=== PATIENT | female | born 1950 | race Caucasian/White ===

== ENCOUNTER → 2018-09-13 12:09 | Outpatient (CLI) | payer MEDICARE, OTHER, SELFPAY ==
--- NOTE | 2018-09-13 | DI.RAD.S_ITS ---
This blank DEXA report has been sent in error by the PACS system. The correct and complete report will be forthcoming in 1-2 days. Thank you for your patience and understanding. Dictated by: Eddie Eden M.D. on 09/13/2018 at 15:00 Approved by: Eddie Eden M.D. on 09/13/2018 at 15:02
--- NOTE | 2018-09-13 | DI.MG.S_ITS ---
BILATERAL DIGITAL SCREENING MAMMOGRAM 3D/2D WITH CAD: 09/13/2018 CLINICAL: Routine screening. Comparison is made to exams dated: 07/14/2017 mammogram, 07/04/2016 mammogram, and 07/02/2015 mammogram - [facility]. The tissue of both breasts is extremely dense, which lowers the sensitivity of mammography. Current study was also evaluated with a Computer Aided Detection (CAD) system. There is a benign biopsy clip in the right breast. No significant masses, calcifications, or other findings are seen in either breast. There has been no significant interval change. IMPRESSION: NEGATIVE There is no mammographic evidence of malignancy. A 1 year screening mammogram is recommended. This exam was interpreted at Station ID: [id number]. NOTE: For mammograms, a report in lay terms will be sent to the patient. Approximately 15% of breast malignancies will not be visualized mammographically. In the management of a palpable breast mass, a negative mammogram must not discourage biopsy of a clinically suspicious lesion. Electronically Signed By: Hever rubalcava/dylan:09/13/2018 17:20:55 letter sent: Normal Exam ACR BI-RADS Category 1: Negative [id number]
== END ==
PROVIDERS: PCP Nurse Practitioner Family; Visit Provider Nurse Practitioner Family
DX: Z12.31 Encounter for screening mammogram for malignant neoplasm of breast (principal); M85.852 Other specified disorders of bone density and structure, left thigh; Z78.0 Asymptomatic menopausal state; Z82.62 Family history of osteoporosis; Z90.722 Acquired absence of ovaries, bilateral
CPT/HCPCS: 77063; 77067; 77080

== ENCOUNTER → 2019-10-09 15:27 | Outpatient (CLI) | payer MEDICARE, OTHER, SELFPAY ==
--- NOTE | 2019-10-09 | DI.MG.S_ITS ---
BILATERAL DIGITAL SCREENING MAMMOGRAM 3D/2D WITH CAD: 10/09/2019 CLINICAL: Routine screening. Comparison is made to exams dated: 09/13/2018 mammogram, 07/14/2017 mammogram, and 07/04/2016 mammogram - [facility]. The tissue of both breasts is heterogeneously dense. This may lower the sensitivity of mammography. Current study was also evaluated with a Computer Aided Detection (CAD) system. There is a biopsy clip in the right breast. No significant masses, calcifications, or other findings are seen in either breast. There has been no significant interval change. IMPRESSION: NEGATIVE There is no mammographic evidence of malignancy. A 1 year screening mammogram is recommended. This exam was interpreted at Station ID: [id number]. NOTE: For mammograms, a report in lay terms will be sent to the patient. Approximately 15% of breast malignancies will not be visualized mammographically. In the management of a palpable breast mass, a negative mammogram must not discourage biopsy of a clinically suspicious lesion. Electronically Signed By: Kelsea contreras/dylan:10/09/2019 17:05:00 letter sent: Normal Exam ACR BI-RADS Category 1: Negative [id number]
== END ==
PROVIDERS: PCP Nurse Practitioner Family; Visit Provider Nurse Practitioner Family
DX: Z12.31 Encounter for screening mammogram for malignant neoplasm of breast (principal)
CPT/HCPCS: 77063; 77067

== ENCOUNTER 2019-10-28 15:29 | Emergency (ER) | payer MEDICARE, OTHER, SELFPAY ==
[2019-10-28 15:34] VITALS: BP 117/70; PULSE 110; RESP 20; TEMP 37.2; O2SAT 100
--- NOTE | 2019-10-28 15:40 | DI.RAD.S_ITS ---
PROCEDURE: XR SACRUM COCCYX MIN 2V INDICATIONS: dizziness/vomiting/syncope after fall TECHNIQUE: 3 views of the sacrum and coccyx acquired. COMPARISON: None. FINDINGS: Bones: No fractures or dislocations. No suspicious bony lesions. Lower lumbar spondylosis. Mild bilateral hip degeneration. Soft tissues: Visualized bowel gas pattern is normal. No suspicious soft tissue densities. IMPRESSION: Mild bilateral hip degeneration No fracture identified Dictated by: Diogenes Mcfarland M.D. on 10/28/2019 at 16:04 Approved by: Diogenes Mcfarland M.D. on 10/28/2019 at 16:06
--- NOTE | 2019-10-28 15:40 | DI.CT.S_ITS ---
PROCEDURE: CT HEAD/BRAIN WO CON INDICATIONS: dizziness/vomiting/syncope after fall TECHNIQUE: Noncontrast 4.5 mm thick angled axial sections acquired from the foramen magnum to the vertex, with coronal and sagittal reformats. For radiation dose reduction, the following was used: automated exposure control, adjustment of mA and/or kV according to patient size. COMPARISON: None. FINDINGS: Image quality: Excellent. CSF spaces: Basal cisterns are patent. No extra-axial fluid collections. The ventricles are symmetric in size and shape. Brain: No intracranial bleeds or masses. There is cerebral volume loss for age, with resultant ventricular and sulcal prominence. There are periventricular and deep white matter chronic small vessel ischemic changes. There is intracranial internal carotid artery atherosclerosis. Skull and face: Calvarium and visualized facial bones appear intact, without suspicious lesions. Sinuses: Visualized sinuses and mastoids are clear. IMPRESSION: No acute intracranial hemorrhage is seen. No acute intracranial process is seen. Note is made of mild age-appropriate brain parenchymal volume loss and chronic small vessel ischemic changes. Dictated by: Jonathan Castillo M.D. on 10/28/2019 at 14:58 Approved by: Jonathan Castillo M.D. on 10/28/2019 at 15:05
[2019-10-28 16:20] VITALS: BP 120/64; PULSE 82; RESP 16; O2SAT 99
[2019-10-28] MEDS: ONDANSETRON 4 MG/2 ML INJ IV (16:24)
[2019-10-28] MEDS: SODIUM CHLORIDE 0.9% 1,000 ML 1000 ML IV (16:24)
[2019-10-28 16:31] LABS: Blood Urea Nitrogen 18 mg/dL (7-17); Calcium 9.1 mg/dL (8.4-10.2); Carbon Dioxide 22 mmol/L (22-32); Chloride 104 mmol/L (98-107); Estimated Glomerular Filt Rate > 60.0 mL/min (>60); Glucose 117 mg/dL (80-110); HEMOLYSIS < 15 (0-50); Potassium 3.3 mmol/L (3.4-5.1); Sodium 139 mmol/L (137-145)
--- NOTE | 2019-10-28 16:56 | ED_ITS ---
HPI - Syncope <YOVANY Wakefield - Last Filed: 10/28/19 23:59> General Chief Complaint: Syncope Stated Complaint: Fell, Hurt Tailbone and Head Time Seen by Provider: 10/28/19 15:39 Source: patient and family Mode of arrival: Ambulatory Limitations: no limitations History of Present Illness HPI narrative: This is a 69-year-old female, nonsmoker, who presents to ED after she was referred by her PCP Dr. Watts for syncopal episode, fall and closed head injury. Patient reports yesterday she accidentally fell in the bathroom on a slick floor and landed on her tailbone then hit posterior head on a sink cabinet. Patient denies loss of consciousness, vision change, limb weakness, vomiting immediately after the fall. Patient denies taking anticoagulants or antiplatelets. In the middle of the night after the fall, patient got up and went to the bathroom and had a syncopal episode and found by her . Patient reports the pain was very severe in her sacrum region with movement and getting out of bed prior to this. Then on the way to the bedroom, patient had another episode of brief syncopal episode lasting for 2-3 minutes. Since then patient had about 4 times of emesis. Patient denies headache but head feels fuzzy. Patient denies seizure activities, tingling/numbness/weakness to extremities. Reports feeling lightheaded and feeling queasy in her stomach. Patient was unable to eat or drank most of the day today and had few sips of liquids. Patient denies urinary or stool incontinence or saddle anesthesia. Patient reports otherwise healthy. Related Data Home Medications Medication Instructions Recorded Confirmed BETAMETH/CLOTRIMAZOLE 1 cre TOPICAL #45 gm 09/19/12 (Clotrimazole-Betamethasone Crm) clobetasol 0.05 % TOPICAL PRN #0 03/18/13 naproxen sodium [Aleve] 220 mg PO PRN #0 03/18/13 tetrahydrozoline [Visine] 1 drp OU PRN #15 ml 03/18/13 estradiol 0.5 mg PO DAILY 10/28/19 10/28/19 Previous Rx's Medication Instructions Recorded estradiol [Vagifem] 10 mcg VG Q DAY #60 04/30/13 lidocaine 1 patch TOP DAILY #15 each 10/28/19 ondansetron 4 mg PO BID-TID PRN #7 tab 10/28/19 Allergies Allergy/AdvReac Type Severity Reaction Status Date / Time Sulfa (Sulfonamide Allergy Severe MOTHER AND Verified 10/28/19 16:24 Antibiotics) BROTHER [SULFA (SULFONAMIDE ARE ANTIBIOTICS)] ALLERGIC codeine [CODEINE] AdvReac Severe HALLUCINATI Verified 10/28/19 16:24 ONS Review of Systems <YOVANY Wakefield - Last Filed: 10/28/19 23:59> Review of Systems Narrative: General: Denies fever, chills, fatigue, malaise, sweats. HEENT: Denies sinus pain, ear pain, sore throat, difficulty swallowing, (+) dizziness. Respiratory: Denies dyspnea, cough, wheezing, hemoptysis, sputum. Cardiovascular: Denies chest pain, palpitations, orthopnea, edema. Gastrointestinal: Denies (+) nausea, (+) 4 episodes of vomiting, abdominal pain, diarrhea, constipation, melena. : Denies dysuria, frequency, incontinence, hematuria, urinary retention. Musculoskeletal: Reports severe discomfort in sacrum/coccyx region. Denies weakness, joint pain or other bony pain. Skin: Denies rash, skin lesions, or other. Neurologic: Denies weakness, headache, numbness, change in speech, confusion, seizures, incoordination. Had 2 syncopal episodes. Psychiatric: No concerning psychosocial issues. 12-point review of systems is negative except for those stated above. Patient History <YOVANY Wakefield - Last Filed: 10/28/19 23:59> Surgical History H/O: hysterectomy (Acute) History of (Acute) Social History Smoking Status: Never smoker Smoking Status: Never smoker Exam <YOVANY Wakefield - Last Filed: 10/28/19 23:59> Narrative Exam Narrative: GEN: Alert, oriented x 3, well appearing and nourished, and in no acute distress. Head: Normal cephalic, atraumatic. No scalp or temporal tenderness, palpable mass or rash. EYES: Pupils are equal, round, and reactive to light and accommodation. Extraocular muscles are intact bilaterally. There is no subconjunctival hemorrhage, exudate and sclera non-icteric. ENT: Bilateral auditory canals and tympanic membranes clear. Hearing grossly intact. Nose without bleeding, purulent discharge, septal hematoma or deviation. Turbinate without erythema or swelling. Facial sinuses nontender to palpate. Mucous membrane moist, no mucosal lesion. Throat without erythema, tonsillar hypertrophy or exudate. Uvula in midline, airway patent. Neck: Trachea in midline. No JVD, mild tenderness in mid cervical region. Mild dicomfort with flexion and extension of the C spine. No lymphadenopathy. No masses or thyroid megaly. Supple, no meningeal signs. CARDIAC: Normal regular rate and rhythm without murmurs, gallops, or rubs. No chest wall tenderness. No peripheral edema, cyanosis or pallor. Capillary refill is less than 2 seconds. No carotid bruits. RESPIRATORY: Lungs are cleat to auscultate bilaterally. No cough, wheezes, rales, or rhonchi. No stridor, respiratory distress, increase work of breathing, or accessary muscle used. ABD: Abdomen soft, nontender and non-distended. No guarding or rebound tenderness to palpate. Bowel sounds are normal in all 4 quadrants. There is no palpable masses or organomegaly. EXT: Full painless ROM of all extremities with no loss of sensation, strength, effusion or edema. SKIN: Warm, dry, normal color for patient. No erythema, lesions or rash. BACK: Tender on coccyx region. No deformity or crepitance. No flank tenderness. NEUROLOGICAL: Alert and oriented to place, time and person. No facial droops, dysphasia. CN II-XII intact. Strength and sensation symmetric and intact throughout. Reflexes 2+ throughout. Cerebellar testing normal. PSYCHIATRIC: Good judgement and reason, without hallucinations, abnormal affect or abnormal behaviors during the examination. Initial Vital Signs Initial Vital Signs: Vital Signs Temperature 99.0 F 10/28/19 15:34 Pulse Rate 110 H 10/28/19 15:34 Respiratory Rate 10/28/19 15:34 Blood Pressure 117/70 10/28/19 15:34 Pulse Oximetry 100 10/28/19 15:34 <Pedro Hoff MD - Last Filed: 10/30/19 21:24> Initial Vital Signs Initial Vital Signs: Vital Signs Temperature 99.0 F 10/28/19 15:34 Pulse Rate 110 H 10/28/19 15:34 Respiratory Rate 20 10/28/19 15:34 Blood Pressure 117/70 10/28/19 15:34 Pulse Oximetry 100 10/28/19 15:34 Scores <Matty Nash GENERAL LABORER - Last Filed: 10/28/19 23:59> GCS [place] coma scale eye opening: Spontaneous [place] coma scale verbal response: Orientated Abimael coma scale motor response: Obey commands [place] coma scale total score: 15 Nexus Score for C-Spine Focal Neurologic deficit present: No Midline spinal tenderness present: Yes Altered level of conciousness present: No Intoxication present: No Distracting Injury Present: Yes Nexus Criteria for C-spine: 2 NIH Stroke Scale Level of Conciousness: Alert, keenly responsive Ask month/age: Answers both questions correctly. Open/close eyes, close hand: Performs both tasks correctly Best gaze horizontal: Normal Visual benitez: No visual loss Facial palsy: Normal symetrical movement Left arm drift: No drift for full 10 sec Right arm drift: No drift for full 10 sec Left leg drift: No drift for full 10 sec Right leg drift: No drift for full 10 sec Limb ataxia: Absent Sensory on face/arms/legs: Normal, no sensory loss Best language: No aphasia, normal Dysarthria: Normal Extinction or inattention: No abnormality Total NIH Stroke scale score: 0 Course <Matty NashYOVANY - Last Filed: 10/28/19 23:59> Orders Ordered: Discontinued Medications Acetaminophen (Tylenol) 650 mg PO NOW ONE Stop: 10/28/19 17:06 Last Admin: 10/28/19 17:11 Dose: 650 mg Documented by: NIGEL Sodium Chloride (Normal Saline 0.9%) 1,000 mls @ 1,000 mls/hr IV BOLUS ONE Stop: 10/28/19 17:16 Last Infusion: 10/28/19 18:36 Dose: 0 mls/hr Documented by: Admin: 10/28/19 16:24 Dose: 1,000 mls/hr Documented by: VANNA Ketorolac Tromethamine (Toradol) 15 mg IV NOW ONE Stop: 10/28/19 16:57 Last Admin: 10/28/19 17:12 Dose: 15 mg Documented by: NIGEL Lidocaine (Lidoderm) 1 each TOP NOW ONE Stop: 10/28/19 16:57 Last Admin: 10/28/19 17:12 Dose: 1 each Documented by: NIGEL Ondansetron HCl (Zofran) 4 mg IV NOW ONE Stop: 10/28/19 16:18 Last Admin: 10/28/19 16:24 Dose: 4 mg Documented by: VANNA Potassium Chloride (Klor-Con M20) 40 meq PO DAILYCC [facility] Potassium Chloride (Klor-Con M20) 40 meq PO NOW ONE Stop: 10/28/19 18:34 Last Admin: 10/28/19 18:37 Dose: 40 meq Documented by: VANNA Vital Signs Vital signs: Vital Signs - 8 hr 10/28/19 16:20 10/28/19 17:00 10/28/19 17:42 Pulse Rate 82 72 Respiratory Rate 16 16 Blood Pressure [Right Arm] 120/64 122/57 L 121/54 L Pulse Oximetry 99 100 10/28/19 18:00 Pulse Rate 79 Respiratory Rate 16 Blood Pressure [Right Arm] 112/54 L Pulse Oximetry 97 <Pedro Hoff MD - Last Filed: 10/30/19 21:24> Orders Ordered: Discontinued Medications Acetaminophen (Tylenol) 650 mg PO NOW ONE Stop: 10/28/19 17:06 Last Admin: 10/28/19 17:11 Dose: 650 mg Documented by: NIGEL Sodium Chloride (Normal Saline 0.9%) 1,000 mls @ 1,000 mls/hr IV BOLUS ONE Stop: 10/28/19 17:16 Last Infusion: 10/28/19 18:36 Dose: 0 mls/hr Documented by: Admin: 10/28/19 16:24 Dose: 1,000 mls/hr Documented by: VANNA Ketorolac Tromethamine (Toradol) 15 mg IV NOW ONE Stop: 10/28/19 16:57 Last Admin: 10/28/19 17:12 Dose: 15 mg Documented by: NIGEL Lidocaine (Lidoderm) 1 each TOP NOW ONE Stop: 10/28/19 16:57 Last Admin: 10/28/19 17:12 Dose: 1 each Documented by: NIGEL Ondansetron HCl (Zofran) 4 mg IV NOW ONE Stop: 10/28/19 16:18 Last Admin: 10/28/19 16:24 Dose: 4 mg Documented by: VANNA Potassium Chloride (Klor-Con M20) [facility] Potassium Chloride (Klor-Con M20) 40 meq PO NOW ONE Stop: 10/28/19 18:34 Last Admin: 10/28/19 18:37 Dose: 40 meq Documented by: VANNA Vital Signs Vital signs: Vital Signs - 8 hr 10/28/19 16:20 10/28/19 17:00 10/28/19 17:42 Pulse Rate 82 72 Respiratory Rate 16 16 Blood Pressure [Right Arm] 120/64 122/57 L 121/54 L Pulse Oximetry 99 100 10/28/19 18:00 Pulse Rate 79 Respiratory Rate 16 Blood Pressure [Right Arm] 112/54 L Pulse Oximetry 97 MDM - Syncope <Matty YOVANY Nash - Last Filed: 10/28/19 23:59> Differential Diagnosis Differential diagnosis: Likely vasovagal syncope, subarachnoid hemorrhage, dehydration and other (acute cerberal hemorrahge, c spine fracture) Medical Records Attestation: I reviewed the patient's medical records. Lab Data Attestation: I reviewed the patient's lab results. Result diagrams: 10/28/19 16:11 Labs: Lab Results 10/28/19 Range/Units 16:11 Sodium 139 (137-145) mmol/L Potassium 3.3 L (3.4-5.1) mmol/L Chloride 104 (98-107) mmol/L Carbon Dioxide 22 (22-32) mmol/L BUN 18 H (7-17) mg/dL Creatinine 0.60 (0.52-1.04) mg/dL Estimated GFR > 60.0 (>60) mL/min BUN/Creatinine Ratio 30.0 H (6-22) Glucose 117 H (80-110) mg/dL Calcium 9.1 (8.4-10.2) mg/dL Imaging Data CT scan - head: Radiologist's Impression: [address] [address] [address] Scan Report Signed Patient: Kamla Mendez KMR#: [id number] : [id number]:[id number] Age/Sex: 69 / FDate of Service: 10/28/19 Loc: ED Accession Number: [id number] Procedure: CT head/brain wo con Ordering Provider: Matty NashP PROCEDURE: CT HEAD/BRAIN WO CON INDICATIONS: dizziness/vomiting/syncope after fall TECHNIQUE: Noncontrast 4.5 mm thick angled axial sections acquired from the foramen magnum to the vertex, with coronal and sagittal reformats. For radiation dose reduction, the following was used: automated exposure control, adjustment of mA and/or kV according to patient size. COMPARISON: None. FINDINGS: Image quality: Excellent. CSF spaces: Basal cisterns are patent. No extra-axial fluid collections. The ventricles are symmetric in size and shape. Brain: No intracranial bleeds or masses. There is cerebral volume loss for age, with resultant ventricular and sulcal prominence. There are periventricular and deep white matter chronic small vessel ischemic changes. There is intracranial internal carotid artery atherosclerosis. Skull and face: Calvarium and visualized facial bones appear intact, without suspicious lesions. Sinuses: Visualized sinuses and mastoids are clear. IMPRESSION: No acute intracranial hemorrhage is seen. No acute intracranial process is seen. Note is made of mild age-appropriate brain parenchymal volume loss and chronic small vessel ischemic changes. Dictated by: Jonathan Castillo M.D. on 10/28/2019 at 14:58 Approved by: Jonathan Castillo M.D. on 10/28/2019 at 15:05 CT-C spine: Radiologist's Impression: [place] [address] CT Scan Report Signed Patient: Kamla Mendez KMR#: [id number] : 1950cct:[id number] Age/Sex: 69 / FDate of Service: 10/28/19 Loc: ED Accession Number: [id number] Procedure: CT cervical spine wo con Ordering Provider: Matty NashP PROCEDURE: CT CERVICAL SPINE WO CON INDICATIONS: fell yesterday, hit head and hyperextended neck, midcervical pain TECHNIQUE: Noncontrast 3 mm thick sections acquired from the skull base to the T4 level. Sagittal and coronal reformats were then constructed. For radiation dose reduction, the following was used: automated exposure control, adjustment of mA and/or kV according to patient size. COMPARISON: None. FINDINGS: Image quality: Excellent. Bones: No fractures or dislocations. Visualized superior ribs are intact. Multilevel degenerative disc and facet disease. Moderate mid/lower cervical kyphosis. Soft tissues: Prevertebral soft tissues are normal in thickness. No paravertebral hematomas. No apical pneumothoraces. IMPRESSION: No fracture. Dictated by: Karla Sanchez M.D. on 10/28/2019 at 17:24 Approved by: Karla Sanchez M.D. on 10/28/2019 at 17:25 XR-Sacrum and coccyx: Radiologist's Impression: [address] [address] XRay Report Signed Patient: Kamla Mendez KMR#: [id number] : 1Acct:[id number] Age/Sex: 69 / FDate of Service: 10/28/19 Loc: ED Accession Number: [id number] Procedure: XR sacrum coccyx min 2V Ordering Provider: Matty Nash PROCEDURE: XR SACRUM COCCYX MIN 2V INDICATIONS: dizziness/vomiting/syncope after fall TECHNIQUE: 3 views of the sacrum and coccyx acquired. COMPARISON: None. FINDINGS: Bones: No fractures or dislocations. No suspicious bony lesions. Lower lumbar spondylosis. Mild bilateral hip degeneration. Soft tissues: Visualized bowel gas pattern is normal. No suspicious soft tissue densities. IMPRESSION: Mild bilateral hip degeneration No fracture identified Dictated by: Diogenes Mcfarland M.D. on 10/28/2019 at 16:04 Approved by: Diogenes Mcfarland M.D. on 10/28/2019 at 16:06 ECG Data Attestation: I personally reviewed and interpreted this ECG as follows: Prior ECG tracings: not available for review Interpretation: Sinus rhythm rate at 91. Normal axis No specific T was abnormality No ST elevation MDM Narrative Medical decision making narrative: CT of head w/o acute findings including no intracranial bleeds or masses with mild age-appropriate brain parenchymal volume loss and chronic small-vessel ischemic changes. CT of c spine w/o fractures or dislocation. No paravertebral hematoma. EKG was sinus rhythm without ST elevation. Patient's neuro exam was normal with GCS of 15. Chemistry test shows mild hypokalemia of 3.3 with increased BUN/creatinine ratio of 30. Patient was hydrated with normal saline, p.o. potassium of 40 mEq, and medicated with Zofran for nausea. Sacum and coccyx xray w/o acute findings including fractures or dislocation. Patient declined narcotic or strong medications for pain since she is sensitive for these medications. Patient reports pain increases with movement. Patient was medicated with Tylenol, lidocaine patch, IV Toradol which helped with her symptoms. Patient denies incontinence, saddle anesthesia, tingling, numbness, weakness to lower extremities and had good strength bilaterally in lower extremity and upper extremity. Patient was ambulatory in stable gait. Patient's syncopal episode is likely due to vasovagal from severe sacral/coccyx discomfort. Patient discharged to home with lidocaine patch and advised to use [id number] Tylenol and or Motrin as needed for discomfort. Strict return precautions were discussed with the patient and patient verbalized understanding and agrees with the treatment plan. Patient vital signs have improved prior discharged to home from HR of 110 to 79 bmp with normal tensive. <Pedro Hoff MD - Last Filed: 10/30/19 21:24> Lab Data Labs: Lab Results 10/28/19 Range/Units 16:11 Sodium 139 (137-145) mmol/L Potassium 3.3 L (3.4-5.1) mmol/L Chloride 104 (98-107) mmol/L Carbon Dioxide 22 (22-32) mmol/L BUN 18 H (7-17) mg/dL Creatinine 0.60 (0.52-1.04) mg/dL Estimated GFR > 60.0 (>60) mL/min BUN/Creatinine Ratio 30.0 H (6-22) Glucose 117 H (80-110) mg/dL Calcium 9.1 (8.4-10.2) mg/dL Discharge Plan Departure Patient Disposition: Home Clinical Impression: Syncope, vasovagal, Hypokalemia Closed head injury Qualifiers: Encounter type: initial encounter Qualified Code(s): S09.90XA - Unspecified injury of head, initial encounter Coccyx contusion Qualifiers: Encounter type: initial encounter Qualified Code(s): S30.0XXA - Contusion of lower back and pelvis, initial encounter Discharge Date/Time: 10/28/19 18:44 Instructions: DI for Syncope in Adults (Fainting), DI for Contusion, DI for Hypokalemia, DI for Closed Head Injury Activity Restrictions/Additional Instructions: You have been diagnosed with [closed head injury, bruised tailbone, syncopal episode likely due to pain. The CT test on head, neck were unremarkable. Coccyx and sacrum x-ray test Does not show fractures or dislocation but mild bilateral hip degeneration. You were medicated with IV fluids, Zofran, lidocaine patch, Tylenol and Toradol. The potassium level was mildly decreased today.]. What to do: *Take your medications as directed. Please use lidocaine patch which stays on for 12 hours and off for 12 hours on affected site for discomfort. You can use Zofran ODT as needed for nausea. Eckb-eyr-wegyael Tylenol and or Motrin as needed for discomfort. Tylenol 650 mg up to 4 times a day and ibuprofen 400 mg up to 3 times a day with food. You can use ice pack on coccyx area. Please use donut cushion while you're sitting for discomfort. Potassium was replaced with oral medication today. Lidocaine patch and Zofran has been transmitted to [facility] in [employer]. *Follow up with your primary care provider in 2-3 days, call for an appointment. Let them know you were seen in the ED and that we asked you to be seen in follow up. *Return to ED if you have any new, worsening, or concerning symptoms, such as [chest pain, breathing difficulty, unable to tolerate fluids, unusual behavior, seizure, incontinence for stool and urine, weakness/numbness to lower extremities or any acute concerns]. Prescriptions: New lidocaine 5 % adhesive patch,medicated 1 patch TOP DAILY Qty: 15 RF: 0 ondansetron 4 mg tablet,disintegrating 4 mg PO BID-TID PRN (Reason: nausea and vomiting) Qty: 7 RF: 0 No Action BETAMETH/CLOTRIMAZOLE (Clotrimazole-Betamethasone Crm) 1 cre Topical Qty: 45 RF: 0 clobetasol 0.05 % ointment 0.05 % Topical PRN Qty: 0 RF: 0 naproxen sodium [Aleve] 220 MG tablet 220 mg PO PRN Qty: 0 RF: 0 tetrahydrozoline [Visine] 15 ML drops 1 drp OU PRN Qty: 15 RF: 0 estradiol [Vagifem] 10 MCG tablet 10 mcg VG Q DAY Qty: 60 RF: 3 estradiol 1 mg tablet 0.5 mg PO DAILY RF: 0 Referrals: Birdie Looney ARNP [Primary Care Provider] -
[2019-10-28 17:00] VITALS: BP 122/57
[2019-10-28] MEDS: ACETAMINOPHEN 325 MG TABLET 650 MG PO (17:11)
[2019-10-28] MEDS: KETOROLAC 60 MG/2 ML VIAL 15 MG IV (17:12)
[2019-10-28] MEDS: LIDOCAINE PATCH 1 EACH ADH..PATCH TOP (17:12)
[2019-10-28 17:42] VITALS: BP 121/54; PULSE 72; RESP 16; O2SAT 100
[2019-10-28 18:00] VITALS: BP 112/54; PULSE 79; RESP 16; O2SAT 97
[2019-10-28] MEDS: POTASSIUM CHLORIDE 20 MEQ TAB 40 MEQ PO (18:37)
== END 2019-10-28 18:44 | disposition home or self-care (01) ==
PROVIDERS: Emergency Provider Nurse Practitioner Family; PCP Nurse Practitioner Family
DX: R55 Syncope and collapse (principal); E87.6 Hypokalemia; S09.90XA Unspecified injury of head, initial encounter; S30.0XXA Contusion of lower back and pelvis, initial encounter; W19.XXXA Unspecified fall, initial encounter
CPT/HCPCS: 36415; 70450; 72125; 72220; 80048; 93005; 96361; 96374; 96375; 99285; J1885; J2405

== ENCOUNTER → 2020-09-30 14:33 | Outpatient (CLI) | payer MEDICARE, OTHER, SELFPAY | PROVIDERS: PCP Student in an Organized Health Care Education/Training Program; Referring Provider Student in an Organized Health Care Education/Training Program; Visit Provider Student in an Organized Health Care Education/Training Program | DX: M85.852 Other specified disorders of bone density and structure, left thigh (principal); M81.0 Age-related osteoporosis without current pathological fracture | CPT/HCPCS: 77080 ==

== ENCOUNTER → 2020-10-10 14:07 | Outpatient (CLI) | payer MEDICARE, OTHER, SELFPAY ==
--- NOTE | 2020-10-10 | DI.MG.S_ITS ---
BILATERAL DIGITAL SCREENING MAMMOGRAM 3D/2D WITH CAD: 10/10/2020 CLINICAL: Routine screening. Comparison is made to exams dated: 10/09/2019 mammogram, 09/13/2018 mammogram, and 07/14/2017 mammogram - [facility]. The tissue of both breasts is heterogeneously dense. This may lower the sensitivity of mammography. Current study was also evaluated with a Computer Aided Detection (CAD) system. There is a biopsy clip in the right breast. No significant masses, calcifications, or other findings are seen in either breast. There has been no significant interval change. IMPRESSION: NEGATIVE There is no mammographic evidence of malignancy. A 1 year screening mammogram is recommended. This exam was interpreted at Station ID: [id number]. NOTE: For mammograms, a report in lay terms will be sent to the patient. Approximately 15% of breast malignancies will not be visualized mammographically. In the management of a palpable breast mass, a negative mammogram must not discourage biopsy of a clinically suspicious lesion. Electronically Signed By: Rafita moncada/dylan:10/12/2020 10:42:35 letter sent: Normal Exam ACR BI-RADS Category 1: Negative 3341F
== END ==
PROVIDERS: PCP Student in an Organized Health Care Education/Training Program; Referring Provider Student in an Organized Health Care Education/Training Program; Visit Provider Student in an Organized Health Care Education/Training Program
DX: Z12.31 Encounter for screening mammogram for malignant neoplasm of breast (principal)
CPT/HCPCS: 77063; 77067

== ENCOUNTER → 2020-12-23 11:07 | Outpatient (CLI) | payer MEDICARE, OTHER, SELFPAY ==
[2020-12-23 13:59] LABS: COVID19 -Nasal RAPID Negative (Negative)
== END ==
PROVIDERS: PCP Student in an Organized Health Care Education/Training Program; Visit Provider Student in an Organized Health Care Education/Training Program
DX: Z20.822 Contact with and (suspected) exposure to COVID-19 (principal)
CPT/HCPCS: 87635; C9803

== ENCOUNTER 2020-12-25 12:38 | Day surgery (SDC) | payer MEDICARE, OTHER, SELFPAY ==
[2020-12-25] VITALS (7 sets, daily range): BP systolic 93–121; BP diastolic 48–71; PULSE 61–80; RESP 13–18; TEMP 36.3–37.1; O2SAT 96–99; BMI 19.5
--- NOTE | 2020-12-25 11:46 | PM.HP.1 ---
History of Present Illness History of Present Illness Date Patient Seen: 12/25/20 Chief complaint: SDC Narrative: 70 year old female comes in today for consideration of a screening colonoscopy. 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 She does have a long history of diarrhea. Prior colonoscopy on 05/02/12 was negative with no pathology on random biopsies. Colonoscopy on 04/21/09 revealed a sigmoid tubular adenoma and ascending colon sessile serrated adenoma. Random biopsies were within normal limits. Currently, other than her baseline diarrhea that is now well-controlled, denies lower GI symptoms suggesting disease such as change in bowel habits, bleeding, abdominal pain or anemia. There's been no family history of colon cancer or colon polyps. Overall health issues have been stable, including no major cardiac events for at least 6 weeks. PCP: Dr. 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 Two children. Patient History Surgical History H/O: hysterectomy History of Family & Social History Tobacco & Substance use: Smoking Status Never smoker Meds Home Medications and Allergies Home Medications Medication Instructions Recorded Confirmed Type BETAMETH/CLOTRIMAZOLE 1 cre TOPICAL #45 gm 09/19/12 History (Clotrimazole-Betamethasone [facility]) clobetasol 0.05 % TOPICAL PRN #0 03/18/13 12/25/20 History naproxen sodium [Aleve] 220 mg PO PRN #0 03/18/13 12/25/20 History tetrahydrozoline [Visine] 1 drp OU PRN #15 ml 03/18/13 12/25/20 History estradiol [Vagifem] 10 mcg VG Q DAY #60 04/30/13 12/25/20 Rx estradiol 0.5 mg PO DAILY 10/28/19 12/25/20 History alendronate 70 mg PO WEEKLY 12/25/20 12/25/20 History loperamide [Imodium] 2 mg PO DAILY 12/25/20 12/25/20 History Allergies Allergy/AdvReac Type Severity Reaction Status Date / Time Sulfa (Sulfonamide Allergy Severe MOTHER AND Verified 12/25/20 13:09 Antibiotics) BROTHER [SULFA (SULFONAMIDE ARE ANTIBIOTICS)] ALLERGIC codeine [CODEINE] AdvReac Severe HALLUCINATI Verified 12/25/20 13:09 ONS Review of Systems Review of Systems ROS: Yes All systems reviewed with the patient and are negative except as otherwise documented Exam Narrative Exam Narrative: GENERAL: Alert and oriented, appearing stated age and in no acute distress. HEENT: Head normocephalic/atraumatic. Pupils equal, round, and reactive to light and accomodation. Extraocular muscles intact. Tympanic membranes clear. Nasal mucosa moist, septum midline. Oral mucosa moist, no lesions. Neck soft and supple, no lymphadenopathy. LUNGS: Clear to ausculation bilaterally, no wheezes, rhonchi or rales. CV: Normal S1 and S2 with regular rate and rhythm, no audible murmurs, rubs or gallops. ABDOMEN: Soft, non-tender, non-distended, no organomegaly. Positive bowel sounds. EXTREMITIES: No clubbing, cyanosis, or edema. NEURO: Cranial nerves II through XII grossly intact, no focal deficits. PSYCH: Alert and oriented x 3. SKIN: No concerning lesions. Assessment & Plan Assessment & Plan narrative: 1. IBS, diarrhea dominant 2. History of colon polyps 3. Screening for colon cancer Plan for colonoscopy. The nature and character of the procedure as well as anticipated results were discussed. The possibility of not completing the procedure was also discussed. Possible complications including aspiration pneumonia, bleeding, perforation and reaction to medications either for sedation or preparation and missed lesions were discussed. Questions were answered and proceeding to the colonoscopy was elected. Informed consent signed.
--- NOTE | 2020-12-25 12:01 | P.OP.ENDO_ITS ---
Operative Date/Time/Diagnoses Date of procedure: 12/25/20 Procedure Notes SCOAP/Timeout: 1:41 p.m. Procedure in detail: ENDOSCOPIST: Adeline Whittaker MD Sedation RN: Edis Neely RN Sedation start time: 1:42 p.m. Sedation end time: 1:58 p.m. PROCEDURE: Colonoscopy INDICATIONS: 1. IBS, diarrhea dominant 2. History of colon polyps 3. Screening for colon cancer MEDICATION: Levsin 0.125 mg sublingual, incremental doses of Versed and fentan yl until appropriate level sedation achieved. ASA CLASS: 2 CECAL WITHDRAWAL TIME: 7 minutes COMPLICATIONS: None. EXTENT OF PROCEDURE: Cecum. QUALITY OF PREP: Good with portions of liquid stool. PROCEDURE: Prior to insertion of the colonoscope, a digital rectal examination was accomplished with circumferential palpation of the distal rectal mucosa without significant findings being noted. The high-definition pediatric colonoscope was passed into the rectum in the usual fashion and advanced over to the cecum without difficulty. The ileocecal valve, appendiceal stoma, and medial wall all could be inspected and no abnormalities were seen. ASCENDING COLON: As the colonoscope was withdrawn, care was taken to expose and inspect the haustral folds and no abnormalities were seen. HEPATIC FLEXURE: Normal, no polyps, diverticula or other abnormalities. TRANSVERSE COLON: Normal, no polyps, diverticula or other abnormalities. DESCENDING COLON: Normal, no polyps, diverticula or other abnormalities. SIGMOID COLON: Normal, no polyps, diverticula or other abnormalities. RECTUM: Normal. J maneuver was produced. There was no significant perianal disease. The J maneuver was broken. The remainder of the rectum was inspected and there was no external hemorrhoid disease. The scope was withdrawn. IMPRESSION: 1. Normal colonoscopy PLAN: 1. Repeat colonoscopy in 10 years. The possibility of a missed lesion including a malignancy has been discussed with the patient previously. Potential alarm symptoms have been discussed and should be reported immediately.
[2020-12-25] MEDS: LACTATED RINGERS 1,000 ML 200 ML IV (13:01)
[2020-12-25] MEDS: HYOSCYAMINE 0.125 MG TABLET PO (13:04)
[2020-12-25] MEDS: fentaNYL 250 MCG/5 ML INJ IV (13:45)
[2020-12-25] MEDS: MIDAZOLAM 5 MG/5 ML VIAL IV (13:45)
--- NOTE | 2020-12-25 16:05 | SUR.PHASEII ---
Late entry: Stable Phase 2, belly soft, no nausea left when ready left in stable condition.
== END 2020-12-25 15:00 | disposition home or self-care (01) ==
PROVIDERS: PCP Student in an Organized Health Care Education/Training Program; Referring Provider Student in an Organized Health Care Education/Training Program; Visit Provider Student in an Organized Health Care Education/Training Program
PROC: 0DJD8ZZ Inspection of Lower Intestinal Tract, Via Natural or Artificial Opening Endoscopic (ICD-10-PCS; CPT 45378; principal; 2020-12-25 13:00)
DX: Z12.11 Encounter for screening for malignant neoplasm of colon (principal); Z86.010 Personal history of colon polyps; K58.0 Irritable bowel syndrome with diarrhea
CPT/HCPCS: G0105; J2250; J3010

== ENCOUNTER → 2021-10-11 15:25 | Outpatient (CLI) | payer MEDICARE, OTHER, SELFPAY ==
--- NOTE | 2021-10-11 | DI.MG.S_ITS ---
BILATERAL DIGITAL SCREENING MAMMOGRAM 3D/2D WITH CAD: 10/11/2021 CLINICAL: Routine screening. Comparison is made to exams dated: 10/10/2020 mammogram, 10/09/2019 mammogram, and 09/13/2018 mammogram - [facility]. The tissue of both breasts is heterogeneously dense. This may lower the sensitivity of mammography. Current study was also evaluated with a Computer Aided Detection (CAD) system. There is a biopsy clip in the right breast. No significant masses, calcifications, or other findings are seen in either breast. There has been no significant interval change. IMPRESSION: NEGATIVE There is no mammographic evidence of malignancy. A 1 year screening mammogram is recommended. This exam was interpreted at Station ID: [id number]. NOTE: For mammograms, a report in lay terms will be sent to the patient. Approximately 15% of breast malignancies will not be visualized mammographically. In the management of a palpable breast mass, a negative mammogram must not discourage biopsy of a clinically suspicious lesion. Electronically Signed By: Gisel hardin/dylan:10/12/2021 08:25:59 letter sent: Normal Exam ACR BI-RADS Category 1: Negative 3341F
--- NOTE | 2021-10-11 | DI.RAD.S_ITS ---
PROCEDURE: XR DEXA AXIAL SKELETON INDICATIONS: ROUTINE SCREENING COMPARISON: [facility], CR, XR DEXA AXIAL SKELETON, 09/30/2020, 14:49. FINDINGS: This blank DEXA report has been sent in error by the PACS system. The correct and complete report will be forthcoming in 1-2 days. Thank you for your patience and understanding. Dictated by: Jeannie Rojas MD, PhD on 10/11/2021 at 17:42 Approved by: Jeannie Rojas MD, PhD on 10/11/2021 at 17:42
== END ==
PROVIDERS: PCP Student in an Organized Health Care Education/Training Program; Referring Provider Student in an Organized Health Care Education/Training Program; Visit Provider Student in an Organized Health Care Education/Training Program
DX: M85.851 Other specified disorders of bone density and structure, right thigh (principal); Z12.31 Encounter for screening mammogram for malignant neoplasm of breast; Z78.0 Asymptomatic menopausal state; Z82.62 Family history of osteoporosis; Z90.722 Acquired absence of ovaries, bilateral
CPT/HCPCS: 77063; 77067; 77080

== ENCOUNTER → 2022-10-18 16:13 | Outpatient (CLI) | payer MEDICARE, OTHER, SELFPAY ==
--- NOTE | 2022-10-18 | DI.MG.S_ITS ---
BILATERAL DIGITAL SCREENING MAMMOGRAM 3D/2D WITH CAD: 10/18/2022 CLINICAL: Routine screening. Comparison is made to exams dated: 10/11/2021 mammogram, 10/10/2020 mammogram, and 10/09/2019 mammogram - [facility]. Both breasts are heterogeneously dense, which may obscure small masses (category c / 51-75% glandular tissue). Current study was also evaluated with a Computer Aided Detection (CAD) system. There is a biopsy clip in the right breast. No significant masses, calcifications, or other findings are seen in either breast. There has been no significant interval change. IMPRESSION: NEGATIVE There is no mammographic evidence of malignancy. A 1 year screening mammogram is recommended. Based on the Tyrer Cuzick model (a risk assessment model) the patient's lifetime risk is 8.2% and her 10 year risk is 5.7%. According to the ACR, ACS, and NCCN guidelines, an annual breast MRI exam along with mammogram is recommended if the patient's lifetime risk is 20% or greater. This exam was interpreted at Station ID: [id number]. NOTE: For mammograms, a report in lay terms will be sent to the patient. Approximately 15% of breast malignancies will not be visualized mammographically. In the management of a palpable breast mass, a negative mammogram must not discourage biopsy of a clinically suspicious lesion. Electronically Signed By: Kelsea contreras/dylan:10/19/2022 12:57:56 letter sent: Normal Exam ACR BI-RADS Category 1: Negative 3341F
== END ==
PROVIDERS: PCP Student in an Organized Health Care Education/Training Program; Referring Provider Family Medicine; Visit Provider Family Medicine
DX: Z12.31 Encounter for screening mammogram for malignant neoplasm of breast (principal)
CPT/HCPCS: 77063; 77067

== ENCOUNTER → 2023-10-26 13:40 | Outpatient (CLI) | payer MEDICARE, OTHER, SELFPAY ==
--- NOTE | 2023-10-26 | DI.MG.S_ITS ---
BILATERAL DIGITAL SCREENING MAMMOGRAM 3D/2D WITH CAD: 10/26/2023 CLINICAL: Routine screening. Comparison is made to exams dated: 10/18/2022 mammogram, 10/11/2021 mammogram, and 10/10/2020 mammogram - [facility]. Both breasts are heterogeneously dense, which may obscure small masses (category c / 51-75% glandular tissue). Current study was also evaluated with a Computer Aided Detection (CAD) system. There is a biopsy clip in the right breast. No significant masses, calcifications, or other findings are seen in either breast. There has been no significant interval change. IMPRESSION: BENIGN There is no mammographic evidence of malignancy. A 1 year screening mammogram is recommended. Based on the Tyrer Cuzick model (a risk assessment model) the patient's lifetime risk is 7.8% and her 10 year risk is 5.8%. According to the ACR, ACS, and NCCN guidelines, an annual breast MRI exam along with mammogram is recommended if the patient's lifetime risk is 20% or greater. This exam was interpreted at Station ID: [id number]. NOTE: For mammograms, a report in lay terms will be sent to the patient. Approximately 15% of breast malignancies will not be visualized mammographically. In the management of a palpable breast mass, a negative mammogram must not discourage biopsy of a clinically suspicious lesion. Electronically Signed By: Sam augustin/dylan:10/26/2023 15:19:23 letter sent: Normal Exam ACR BI-RADS Category 2: Benign Finding(s) 3342F
== END ==
LOC: MAMMO 13:41
PROVIDERS: PCP Registered Nurse; Referring Provider Registered Nurse; Visit Provider Registered Nurse
DX: Z12.31 Encounter for screening mammogram for malignant neoplasm of breast (principal); R92.333 Mammographic heterogeneous density, bilateral breasts
CPT/HCPCS: 77063; 77067

== ENCOUNTER → 2024-01-11 12:44 | Outpatient (CLI) | payer MEDICARE, OTHER, SELFPAY ==
--- NOTE | 2024-01-11 12:45 | DI.RAD.S_ITS ---
Bone Density Report Name: PIYUSH MONET Age: 73 Sex: Female Ethnicity: White Date of : 1950 Indication: osteopenia; Referring Provider: PRISCILA MONET Study: Bone densitometry was performed. Exam Date: January 11, 2024 Accession number: [id number] Bone Density: Region BMD T-score Z-score Classification AP Spine(L1-L4) 0.905 -1.3 1.0 Osteopenia Femoral Neck (Left) 0.561 -2.6 -0.6 Osteoporosis Total Hip (Left) 0.729 -1.7 -0.1 Osteopenia Femoral Neck (Right) 0.582 -2.4 -0.5 Osteopenia Total Hip (Right) 0.690 -2.1 -0.4 Osteopenia Total Hip Mean 0.710 -1.9 -0.3 Osteopenia World Health Organization criteria for BMD impression classify patients as: Normal (T-score at or above -1.0), Osteopenia (T-score between -1.0 and -2.5), or Osteoporosis (T-score at or below -2.5). 10-year Fracture Risk: FRAX not reported because: Some T-score for Spine Total or Hip Total or Femoral Neck at or below -2.5 Previous Exams: -- Region Exam Age BMD T-score BMD Change BMD Change Date g/cm2 vs Baseline vs Previous -- AP Spine (L1-L4) 01/11/2024 73 0.905 -1.3 -0.068 (-7.0%)# -0.030 (-3.2%)# 10/11/2021 71 0.934 -1.0 -0.039 (-4.0%)* -0.027 (-2.8%)* 09/30/2020 70 0.961 -0.8 -0.012 (-1.2%) 0.033 (3.5%)* 09/13/2018 68 0.929 -1.1 -0.045 (-4.6%)* -0.065 (-6.5%)* 08/11/2016 66 0.994 -0.5 0.020 (2.1%) 0.069 (7.4%)* 04/20/2011 60 0.925 -1.1 -0.048 (-5.0%)* -0.048 (-5.0%)* 04/11/2008 57 0.973 -0.7 Total Hip(Left) 01/11/2024 73 0.729 -1.7 -0.065 (-8.2%)# 0.022 (3.1%)# 10/11/2021 71 0.707 -1.9 -0.087 (-11.0%)* 0.002 (0.4%) 09/30/2020 70 0.705 -1.9 -0.090 (-11.3%)* -0.024 (-3.3%) 09/13/2018 68 0.729 -1.7 -0.065 (-8.2%)* -0.017 (-2.3%) 08/11/2016 66 0.746 -1.6 -0.048 (-6.1%)* 0.008 (1.1%) 04/20/2011 60 0.738 -1.7 -0.056 (-7.1%)* -0.056 (-7.1%)* 04/11/2008 57 0.795 -1.2 Total Hip(Right) 01/11/2024 73 0.690 -2.1 -0.094 (-11.9%)# -0.004 (-0.6%)# 10/11/2021 71 0.694 -2.0 -0.090 (-11.4%)* 0.012 (1.8%) 09/30/2020 70 0.682 -2.1 -0.102 (-13.0%)* -0.008 (-1.1%) 09/13/2018 68 0.690 -2.1 -0.094 (-12.0%)* -0.024 (-3.3%) 08/11/2016 66 0.713 -1.9 -0.071 (-9.0%)* -0.027 (-3.6%) 04/20/2011 60 0.740 -1.7 -0.044 (-5.6%)* -0.044 (-5.6%)* 04/11/2008 57 0.784 -1.3 -- *Denotes significance at 95% confidence level, LSC for AP Spine = 0.022 g/cm2, LSC for Total Hip = 0.027 g/cm2 # Denotes dissimilar scan types or analysis methods Impression: The patient has osteoporosis, based on the Left Femoral Neck T-score. No significant bone loss was observed. Discussion: INCREASED RISK OF FRACTURE. BONE DENSITY IS UNDESIRABLY LOW AT ONE OR MORE SKELETAL SITES, CONSISTENT WITH POSTMENOPAUSAL OSTEOPOROSIS. This patient's lowest T-score meets the World Health Organization's (WHO) criteria for osteoporosis at one or more sites (T-score -2.5 or below). In untreated patients, the risk of osteoporotic fracture increases approximately two-fold for each 1.0 SD decrease in T-score. Low bone density is not the only risk factor for fracture; also consider factors such as patient's age, frailty or poor health, risk of falling, risk of injury, previous osteoporotic fracture, family history of osteoporosis, cigarette smoking, low body weight, etc. Not everyone with low bone mineral density has osteoporosis; osteomalacia and other metabolic bone disorders should also be considered. Patients who have osteoporosis should be evaluated for specific diseases and conditions (secondary causes) that may cause or contribute to bone loss. The [place] Association [employer] Clinical Endocrinologists (AACE) and National Osteoporosis Foundation (NOF) recommend pharmacologic intervention for all postmenopausal women whose T-score is in this range. The patient should follow a healthful lifestyle (good nutrition with adequate calcium and vitamin D, and appropriate weight-bearing exercise). Follow-Up: Consider a repeat BMD and Vertebral Fracture Assessment (VFA) exam in 2 years or sooner if medically necessary, to reassess this patient's status. Reported by: DICK LEMOS M.D. on 01/11/2024 1:17:00 PM.
== END ==
LOC: RAD 12:45
PROVIDERS: PCP Registered Nurse; Referring Provider Registered Nurse; Visit Provider Registered Nurse
DX: M81.0 Age-related osteoporosis without current pathological fracture (principal); Z13.820 Encounter for screening for osteoporosis; Z78.0 Asymptomatic menopausal state
CPT/HCPCS: 77080

== ENCOUNTER → 2024-10-28 15:39 | Outpatient (CLI) | payer MEDICARE, OTHER, SELFPAY ==
--- NOTE | 2024-10-28 15:42 | DI.MG.S_ITS ---
BILATERAL DIGITAL SCREENING MAMMOGRAM 3D/2D WITH CAD: 10/28/2024 CLINICAL: Routine screening. Comparison is made to exams dated: 10/26/2023 mammogram, 10/11/2021 mammogram, and 10/18/2022 mammogram - [facility]. The breasts are heterogeneously dense, which may obscure small masses (category c / 51-75% glandular tissue). Current study was also evaluated with a Computer Aided Detection (CAD) system. There is a biopsy clip in the right breast. No significant masses, calcifications, or other findings are seen in either breast. There has been no significant interval change. IMPRESSION: NEGATIVE There is no mammographic evidence of malignancy. A 1 year screening mammogram is recommended. Based on the Tyrer Cuzick model (a risk assessment model) the patient's lifetime risk is 7.3% and her 10 year risk is 6.0%. According to the ACR, ACS, and NCCN guidelines, an annual breast MRI exam along with mammogram is recommended if the patient's lifetime risk is 20% or greater. This exam was interpreted at Station ID: [id number]. NOTE: For mammograms, a report in lay terms will be sent to the patient. Approximately 15% of breast malignancies will not be visualized mammographically. In the management of a palpable breast mass, a negative mammogram must not discourage biopsy of a clinically suspicious lesion. Electronically Signed By: Anson fonseca/dylan:10/29/2024 13:08:57 letter sent: Normal Exam ACR BI-RADS Category 1: Negative
== END ==
PROVIDERS: PCP Registered Nurse; Referring Provider Registered Nurse; Visit Provider Registered Nurse
DX: Z12.31 Encounter for screening mammogram for malignant neoplasm of breast (principal); R92.333 Mammographic heterogeneous density, bilateral breasts
CPT/HCPCS: 77063; 77067

== ENCOUNTER → 2025-09-02 10:11 | Outpatient (CLI) | payer MEDICARE, OTHER, SELFPAY ==
--- NOTE | 2025-09-02 10:16 | DI.RAD.S_ITS ---
PROCEDURE: XR CERVICAL SPINE 4V OR 5V INDICATIONS: Neck pain TECHNIQUE: 6 views of the cervical spine were acquired. COMPARISON: None. FINDINGS: Bones: No fractures or dislocations to the T1 level. The lateral masses of C1 appear intact on the odontoid view. No suspicious bony lesions. Gentle convex-left curvature of the cervical spine insufficient to meet criteria for scoliosis. Grade 1 C3 on C4 and C4 on C5 and C7 on T1 and T1 on T2 anterolisthesis in the neutral position. Grade 1 C6 on C7 retrolisthesis is noted. C3 on C4 and C4 on C5 anterolisthesis increases with flexion and resolves with extension. Otherwise, no significant change with flexion or extension. Multilevel degenerative disc disease is most pronounced at the moderate to marked C5-6 and C6-7 disc narrowing. Multilevel facet arthropathy is present throughout the cervical spine. Soft tissues: Prevertebral soft tissues are normal in thickness. IMPRESSION: No acute fracture. Multilevel degenerative disc and facet arthropathy. Dictated by: Michelle Christensen M.D. on 09/02/2025 at 23:51 Approved by: Michelle Christensen M.D. on 09/02/2025 at 23:55
== END ==
PROVIDERS: PCP Registered Nurse; Referring Provider Registered Nurse; Visit Provider Registered Nurse
DX: M47.812 Spondylosis without myelopathy or radiculopathy, cervical region (principal); M50.322 Other cervical disc degeneration at C5-C6 level
CPT/HCPCS: 72050